=== PATIENT | female | born 1960 | race Caucasian/White ===

== ENCOUNTER → 2018-08-04 | Day surgery (SDC) | payer MEDICARE ==
[2018-07-30 11:22] LABS: BASOPHILS # (AUTO) 0.1 (0.0-0.1); BASOPHILS % 0.8 % (0.0-1.0); EOSINOPHILS # (AUTO) 0.3 (0.0-0.4); HEMATOCRIT 48.1 % (34.2-44.1); HEMOGLOBIN 15.6 g/dL (12.0-16.0); LYMPHOCYTES # (AUTO) 3.2 (1.0-3.2); MEAN CORPUSCULAR HEMOGLOBIN 30.4 pg (28-32); MEAN CORPUSCULAR HGB CONC 32.4 g/dL (31-35); MEAN CORPUSCULAR VOLUME 93.6 fL (81-99); MONOCYTES # (AUTO) 0.6 (0.2-0.8); MONOCYTES % 5.7 % (4.4-11.3); NEUTROPHILS # (AUTO) 6.2 (2.1-6.9); NEUTROPHILS % 59.1 % (38.7-80.0); PLATELET COUNT 267 x10e3/uL (140-360); RED BLOOD COUNT 5.14 x10e6/uL (3.6-5.1); RED CELL DISTRIBUTION WIDTH 13.3 % (11.7-14.4)
--- NOTE | 2018-07-30 11:47 | Diagnostic Imaging Report ---
EXAM: XR CHEST 2 VIEWS DATE: 07/30/2018 11:22 AM INDICATION: Admission, pain COMPARISON: None FINDINGS: Lines and Tubes: None Heart and Mediastinum: No acute cardiomediastinal findings. Lungs and Pleura: No significant pleural effusion, pneumothorax, or focal consolidation. Minimal opacities in the lung bases statistically represent atelectasis, however, infectious process could have a similar appearance. Bones and Soft Tissues: No acute findings. IMPRESSION: 1. No acute cardiopulmonary findings. Signed by: Dr. Grover Ferguson MD on 07/30/2018 11:44 AM
[~2018-08-04] MED LIST: ASPIRIN325 MG PO; BACLOFEN20 MG; CLARITIN10 M2; COREG3.125 MG; DEXAMETHASONE SOD PHOS INJ 4 MG/ML VIAL ONE; FENTANYL CITRATE/PF 100MCG/2 ML INJ ONE; KETOROLAC TROMETHAMINE 30 MG/ML VIAL ONE; LIDOCAINE HCL 2% LOCAL INJ 5 ML SDV VIAL INJ ONE; LOSARTAN POTASS25 MG; MIDAZOLAM HCL 2 MG/2 ML VIAL ONE; ONDANSETRON HCL INJ 2 MG/ML VIAL ONE; PROPOFOL IV EMULSION 10 MG/ML 20 ML VIAL ONE; SEVOFLURANE INHAL SOLN 250 ML PEN BTL ONE; VALIUM5 MG; ZOFRAN ODT4 MG
--- OUTSIDE RECORDS SUMMARY | 2018-08-04 10:30 | XMS REPORT | Clinical Summary ---
Author Author [facility] Organization [facility] Address Unknown Phone Unavailable Care Team Providers Care Accountant Clerk Name Role Phone Asked, No Pcp PCP Unavailable Allergies Comments Active Allergy Reactions Severity Noted Date Aripiprazole Itching 04/30/2018 Povidone-Iodine Itching 04/30/2018 Urinary retention Divalproex Other (See 04/30/2018 Comments) Trazodone Shortness Of High 04/30/2018 Breath Iodine Rash Low 04/30/2018 "makes me ill" Atorvastatin Other (See 04/30/2018 Comments) cough Lisinopril Other (See 04/30/2018 Comments) Thioridazine Shortness Of High 04/30/2018 Breath Risperidone Itching 04/30/2018 Quetiapine Itching 04/30/2018 Carbamazepine Other (See 04/30/2018 Comments) Medications Not on file Active Problems Not on file Encounters Care Team Description Date Type Specialty Sam Singh MD Dehydration (Primary Dx); Malaise; Hypertensive emergency; Decreased urine output; Chronic hypertension; Multiple sclerosis; Tobacco abuse; Alcohol abuse; Leukocytosis, unspecified type; Hyperchloremia 04/30/2018 Emergency Emergency Medicine after 08/03/2017 Social History Date Tobacco Use Types Packs/Day Years Used Current Every Day Smoker Smokeless Tobacco: Never Used Alcohol Use Drinks/Week oz/Week Comments Yes 1-2 Cans of 0.6 - 1.2 daily beer Sex Assigned at Date Recorded Not on file Industry Job Start Date Occupation Not on file Not on file Not on file Travel End Travel History Travel Start No recent travel history available. Last Filed Vital Signs Time Taken Vital Sign Reading 04/30/2018 3:45 PM CDT Blood Pressure 166/79 04/30/2018 3:45 PM CDT Pulse 68 04/30/2018 2:11 PM CDT Temperature 36.8 C (98.3 F) 04/30/2018 2:11 PM CDT Respiratory Rate 18 04/30/2018 3:45 PM CDT Oxygen Saturation 95% - Inhaled Oxygen - Concentration - Weight - 04/30/2018 2:11 PM CDT Height 170.2 cm (5' 7") - Body Mass Index - Plan of Treatment Health Maintenance Due Date Last Done Comments CERVICAL CANCER SCREENING 1980 BREAST CANCER SCREENING 2009 COLON CANCER SCREENING 2009 SHINGRIX VACCINE (#1) 2009 INFLUENZA VACCINE 04/23/2018 Procedures Comments Procedure Name Priority Date/Time Associated Diagnosis ECG ED PRELIMINARY Routine 04/30/2018 INTERPRETATION 5:03 PM CDT ECG 12-LEAD Routine 04/30/2018 4:54 PM CDT XR CHEST 2 VW STAT 04/30/2018 3:13 PM CDT GRAM STAIN Routine 04/30/2018 2:56 PM CDT URINE CULTURE Routine 04/30/2018 2:56 PM CDT RESPIRATORY PATHOGEN Routine 04/30/2018 PANEL 2:56 PM CDT BLOOD CULTURE, AEROBIC & Routine 04/30/2018 ANAEROBIC 2:56 PM CDT MANUAL DIFFERENTIAL STAT 04/30/2018 2:50 PM CDT ZZESTIMATED GFR STAT 04/30/2018 2:50 PM CDT B NATRIURETIC PEP, I-STAT STAT 04/30/2018 2:50 PM CDT TROPONIN, I-STAT STAT 04/30/2018 2:50 PM CDT URINALYSIS STAT 04/30/2018 2:50 PM CDT LACTIC ACID, I-STAT STAT 04/30/2018 2:50 PM CDT COMPREHENSIVE METABOLIC STAT 04/30/2018 PANEL 2:50 PM CDT CBC WITH PLATELET AND STAT 04/30/2018 DIFFERENTIAL 2:50 PM CDT BLOOD CULTURE, AEROBIC & Routine 04/30/2018 ANAEROBIC 2:50 PM CDT after 08/03/2017 Results * ECG ED Preliminary Interpretation - NOT AN ORDER (04/30/2018 5:03 PM CDT) Narrative Performed At Sam Singh MD 05/01/2018 12:39 PM ECG ED Preliminary Interpretation - Not an Order Performed by: SAM SINGH Authorized by: SAM SINGH ECG reviewed by ED Physician in the absence of a preschool associate teacher: yes Interpretation: Interpretation: abnormal Rate: ECG rate:57 ECG rate assessment: bradycardic Rhythm: Rhythm: sinus bradycardia QRS: QRS axis:Normal QRS intervals:Normal ST segments: ST segments:Normal * ECG 12 lead (04/30/2018 4:54 PM CDT) Ventricular rate 57 [facility] Atrial rate 57 [facility] DE interval 122 [facility] QRSD interval 84 [facility] QT interval 440 [facility] QTC interval 428 [facility] P axis 1 23 [facility] QRS axis 1 71 [facility] T wave axis 65 [facility] EKG impression Sinus bradycardia-Otherwise [facility] normal ECG-No previous ECGs available- Performing Organization Address City/State/Zipcode Phone Number [facility] MUSE [address] [place] [address] * XR Chest 2 Vw (04/30/2018 3:13 PM CDT) Narrative Performed At EXAMINATION:XR CHEST 2 VW [facility] CLINICAL HISTORY:fever COMPARISON:None. FINDINGS: Two views of the chest demonstrate normal cardiomediastinal silhouette. Pulmonary vasculature is within normal limits. Both lungs are clear. No pleural disease is identified. Regional osseous structures is unremarkable. IMPRESSION: No radiographic evidence of acute cardiopulmonary process or active disease of the chest. [id number] Procedure Note Hm Interface, Radiology Results Incoming - 04/30/2018 3:19 PM CDT EXAMINATION: XR CHEST 2 VW CLINICAL HISTORY: fever COMPARISON: None. FINDINGS: Two views of the chest demonstrate normal cardiomediastinal silhouette. Pulmonary vasculature is within normal limits. Both lungs are clear. No pleural disease is identified. Regional osseous structures is unremarkable. IMPRESSION: No radiographic evidence of acute cardiopulmonary process or active disease of the chest. [id number] Performing Organization Address City/[facility]/Zipcode Phone Number [address] [address] * Respiratory pathogen panel (04/30/2018 2:56 PM CDT) Respiratory pathogen Negative for all pathogens [facility] DEPARTMENT OF panel tested: PATHOLOGY AND Negative for Adenovirus GENOMIC MEDICINE Negative for Coronavirus HKU1 Negative for Coronavirus NL63 Negative for Coronavirus 229E Negative for Coronavirus OC43 Negative for Human Metapneumovirus Negative for Rhinovirus/Enterovirus Negative for Influenza A Negative for Influenza A/H1 Negative for Influenza A/H3 Negative for Influenza A/H1-2009 Negative for Influenza B Negative for Parainfluenza Virus 1 Negative for Parainfluenza Virus 2 Negative for Parainfluenza Virus 3 Negative for Parainfluenza Virus 4 Negative for Respiratory Syncytial Virus Negative for Bordetella pertussis Negative for Chlamydophila pneumoniae Negative for Mycoplasma pneumoniae This real-time PCR assay detects the presence of nucleic acids (RNA or DNA) for the respiratory pathogens listed. A result of "Not-detected" does not exclude the possibility of the presence of one or more pathogens at concentrations less than the detectable limits of the assay. Comment: Specimen Information Specimen Source: Nares Specimen Site: Left Specimen Nares - Left Performing Organization Address [facility] Phone Number [facility] DEPARTMENT OF [address] [place] [id number] PATHOLOGY AND GENOMIC MEDICINE * Blood culture, aerobic & anaerobic (04/30/2018 2:56 PM CDT) Only the most recent of 2 results within the time period is included. Blood culture isolate No growth after 5 days of [facility] DEPARTMENT OF incubation. PATHOLOGY AND Comment: GENOMIC MEDICINE Specimen Information Specimen Source: Blood Specimen Site: Hand, left Specimen Blood - Hand, left Performing Organization Address [facility]/Zipcode Phone Number [facility] DEPARTMENT OF [address] [place] [address] PATHOLOGY AND GENOMIC MEDICINE * Gram stain (04/30/2018 2:56 PM CDT) Gram stain result No WBC's or organisms seen. [facility] DEPARTMENT OF Comment: PATHOLOGY AND Specimen Information GENOMIC MEDICINE Specimen Source: Urine Specimen Site: Urine, clean catch Specimen Urine - Urine, clean catch Performing Organization Address [facility]/Zipcode Phone Number [facility] DEPARTMENT OF [address] [place] [address] PATHOLOGY AND GENOMIC MEDICINE * Urine culture (04/30/2018 2:56 PM CDT) Urine culture isolate Gram negative rods [facility] DEPARTMENT OF <10-1 cfu/ml PATHOLOGY AND (A) GENOMIC MEDICINE Comment: Specimen Information Specimen Source: Urine Specimen Site: Urine, clean catch Urine culture isolate Mixed Gram positive sedrick [facility] DEPARTMENT OF 10-1 cfu/ml PATHOLOGY AND (A) GENOMIC MEDICINE Specimen Urine - Urine, clean catch Performing Organization Address City/[facility] Phone Number [facility] DEPARTMENT OF [address] [place] [phone] PATHOLOGY AND GENOMIC MEDICINE * Estimated GFR (04/30/2018 2:50 PM CDT) GFR Non Af Amer >90 mL/min/1.73 m2 [facility] GFR Af Amer >90 mL/min/1.73 m2 DEPARTMENT OF Comment: PATHOLOGY AND Chronic kidney disease: <60 [facility], mL/min/1.73m2 [facility] Kidney failure: <15 [facility] mL/min/1.73m2 The estimated GFR is calculated from the IDMS-traceable Modification of Diet in Renal Disease Equation. The accuracy of the calculation is poor when the creatinine is normal. Calculated values >90 mL/min/1.73m2 are not reported. This equation has not been validated in children (<18 years), women, the elderly (>70 years), or ethnic groups other than Caucasians and Americans. Specimen Plasma specimen Performing Organization Address City/[facility]/Zipcode Phone Number [facility] [id number] [place] [phone] [facility] * Urinalysis (04/30/2018 2:50 PM CDT) Glucose, UA Negative Negative [facility] Bilirubin, UA Negative Negative [facility] Ketones, UA Negative Negative [facility] Specific gravity, UA 1.010 1.001 - 1.035 [facility] Blood, UA Negative Negative [facility] pH, UA 7.0 5.0 - 8.5 [facility] Protein, UA Negative Negative [facility] Urobilinogen, UA <2.0 <2.0 [facility] Nitrite, UA Negative Negative DEPARTMENT OF PATHOLOGY AND GENOMIC MEDICINE, [facility] Leukocyte esterase, UA Negative Negative [facility] Color, UA Yellow [facility] Appearance, UA Clear [facility] Specimen Urine Performing Organization Address City/State/[place] [address] [facility] * Troponin, I-Stat (04/30/2018 2:50 PM CDT) Troponin, I-Stat 0.00 0.00 - 0.08 ng/mL DEPARTMENT OF Comment: PATHOLOGY AND 0.09 - 1.49 GENOMIC MEDICINE, ng/mlMay [facility] indicate increased risk of [facility] acute coronary syndrome. >=1.5 ng/ml Consistent with acute myocardial infarction. The diagnostic value of a single normal or non-diagnostic result is questionable.Serial samples at 2-6 hour intervals are required to rule out acute myocardial injury. Specimen Plasma specimen Performing Organization Address City/[facility]/[place] [address] [facility] * Lactic acid, I-Stat (04/30/2018 2:50 PM CDT) Lactic acid, I-Stat 1.1 0.5 - 2.2 mmol/L [facility] Specimen Plasma specimen Performing Organization Address City/State/[place] [address] [facility] * B natriuretic pep, I-Stat (04/30/2018 2:50 PM CDT) BNP, I-Stat 75 0 - 100 pg/mL [facility] Specimen Blood Performing Organization Address City/State/Zipcode Phone Number [facility] [address] [place] [address] [facility] * Manual differential (04/30/2018 2:50 PM CDT) Manual differential PERFORMED [facility] DEPARTMENT OF PATHOLOGY AND GENOMIC MEDICINE Neutrophils 67.0 39.0 - 69.0 % [facility] DEPARTMENT OF PATHOLOGY AND GENOMIC MEDICINE Lymphocytes 27.0 25.0 - 45.0 % [facility] DEPARTMENT OF PATHOLOGY AND GENOMIC MEDICINE Monocytes 4.0 0.0 - 10.0 % [facility] DEPARTMENT OF PATHOLOGY AND GENOMIC MEDICINE Eosinophils 1.0 0.0 - 5.0 % [facility] DEPARTMENT OF PATHOLOGY AND GENOMIC MEDICINE Basophils 1.0 0.0 - 1.0 % [facility] DEPARTMENT OF PATHOLOGY AND GENOMIC MEDICINE Metamyelocytes 0 % [facility] DEPARTMENT OF PATHOLOGY AND GENOMIC MEDICINE Promyelocytes 0 % [facility] DEPARTMENT OF PATHOLOGY AND GENOMIC MEDICINE Platelet slide review Leon adequateComment: Platelet [facility] DEPARTMENT OF aggregates present. PATHOLOGY AND GENOMIC MEDICINE Anisocytosis Moderate [facility] DEPARTMENT OF PATHOLOGY AND GENOMIC MEDICINE Polychromasia Moderate [facility] DEPARTMENT OF PATHOLOGY AND GENOMIC MEDICINE Enlarged platelets Moderate (A) [facility] DEPARTMENT OF PATHOLOGY AND GENOMIC MEDICINE Performing Organization Address City/State/Zipcode Phone Number [facility] DEPARTMENT OF [address] [place] [address] PATHOLOGY AND GENOMIC MEDICINE * Comprehensive metabolic panel (04/30/2018 2:50 PM CDT) Sodium 137 128 - 145 mEq/L [facility] Potassium 3.8 3.6 - 5.1 mEq/L [facility] CO2 24 18 - 33 mEq/L [facility] Chloride 109 (H) 98 - 108 mEq/L [facility] Glucose 112 73 - 118 mg/dL [facility] Calcium 9.3 8.0 - 10.3 mg/dL [facility] BUN 7 7 - 22 mg/dL [facility] Creatinine 0.6 0.6 - 1.2 mg/dL [facility] Alkaline phosphatase 107 42 - 141 U/L [facility] ALT 31 10 - 47 U/L [facility] AST 32 11 - 38 U/L [facility] Total bilirubin 0.6 0.2 - 1.6 mg/dL [facility] Albumin 3.9 3.3 - 5.5 g/dL [facility] Protein 7.1 6.4 - 8.1 g/dL [facility] Anion gap 4@ANIO (L) 7 - 15 mEq/L [facility] A/G ratio 1.2 0.7 - 3.8 [facility] Specimen Plasma specimen Performing Organization Address City/State/Zipcode Phone Number [address] [address] [facility] after 08/03/2017 Insurance Payer Benefit Subscriber ID Type Phone Address Plan / Group MEDICARE MEDICARE xxxxxxxxxx Medicare [place], [place] PART A AND B Advance Directives Patient has advance care planning documents on file. For more information, tata bryan contact: Rojelio Dyson [address] [place] [address]
--- OUTSIDE RECORDS SUMMARY | 2018-08-04 10:31 | XMS REPORT ---
Author Author [facility] Address Unknown Phone Unavailable Care Team Providers Care Fire Chief Name Role Phone NEISHA WHATLEY Unavailable Unavailable Problems This patient has no known problems. Allergies, Adverse Reactions, Alerts This patient has no known allergies or adverse reactions. Medications This patient has no known medications. Results Test Description Test Time Test Comments Text Results Atomic Results Result Comments CHEST 2 VIEWS 2018-07-30 11:43:00 [place] [address] Patient Name: KIRK ALEJANDRO MR #: [id number] : 1960 Age/Sex: 58/F Req #: [id number] Adm Physician: Ordered by: NEISHA WHATLEY MD Report #: [id number] Location: OR Room/Bed: Procedure: [id number] DX/CHEST 2 VIEWS Exam Date: Exam Time: REPORT STATUS: Signed EXAM: XR CHEST 2 VIEWS DATE: 07/30/2018 11:22 AM INDICATION: Admission , pain COMPARISON: None FINDINGS: Lines and Tubes: None Heart and Mediastinum: No acute cardiomediastinal findings. Lungs and Pleura: No significant pleural effusion, pneumothorax, or focal consolidation. Minimal opacities in the lung bases statistically represent atelectasis, however, infectious process could have a similar appearance. Bones and Soft Tissues: No acute findings. IMPRESSION: 1. No acute cardiopulmonary findings. Signed by: Dr. Grover Ferguson MD on 07/30/2018 11:44 AM Dictated By: GROVER FERGUSON MD [id number] Transcribed By: YEE on 07/30/18 1144 COPY TO: NEISHA WHATLEY MD
[2018-08-04 14:33] VITALS: BP 136/79
--- NOTE | 2018-08-04 16:21 | Operative Report ---
DATE OF PROCEDURE: August 04, 2018 PREOPERATIVE DIAGNOSIS: Post menopausal bleeding. POSTOPERATIVE DIAGNOSIS: Post menopausal bleeding. OPERATION PERFORMED: Hysteroscopy and dilatation and curettage. COMPLICATIONS: None. ESTIMATED BLOOD LOSS: Minimal. DETAILS OF PROCEDURE: The patient was taken to the OR, and general anesthesia was placed. She was prepped and draped in the normal sterile fashion. She was placed in the dorsal lithotomy position. Examination under anesthesia revealed the uterus anteverted and mobile and no adnexal masses. A weighted speculum was placed inside the vagina and the cervix was grasped with a single tooth tenaculum. The cervix was dilated to Hegar 8. Cavity length measured about 6 cm. Hysteroscope was introduced without difficulty and showed normal cavity. Hysteroscope was removed. Sharp curettings were obtained and sent to pathology. Patient tolerated the procedure well. Laps and needle count was correct x3 at the end of the procedure. Job#: [id number]
== END | disposition home or self-care (01) ==
LOC: OR 10:28
PROVIDERS: ATTEND Obstetrics & Gynecology
DX: N95.0 Postmenopausal bleeding (principal); Z01.810 Encounter for preprocedural cardiovascular examination; Z01.812 Encounter for preprocedural laboratory examination; F31.9 Bipolar disorder, unspecified; I25.10 Atherosclerotic heart disease of native coronary artery without angina pectoris; I10 Essential (primary) hypertension; J44.9 Chronic obstructive pulmonary disease, unspecified; G47.33 Obstructive sleep apnea (adult) (pediatric); K21.9 Gastro-esophageal reflux disease without esophagitis; Z87.442 Personal history of urinary calculi; E66.01 Morbid (severe) obesity due to excess calories; F17.210 Nicotine dependence, cigarettes, uncomplicated
CPT/HCPCS: 36415; 58558; 71046; 85025; 88305; 93005; J1100; J1885; J2001; J2250; J2405; J2704